=== PATIENT | male | born 1950 | race Caucasian/White ===

== ENCOUNTER → 2018-02-19 | Outpatient (CLI) | payer MEDICARE ==
[~2018-02-19] MED LIST: CALC1TAB2 PO; CARV25TA PO; CYAN500 PO; DOCU-272 PO; DOXA8TAB81 PO; DUTA1CPM PO; ESOM20CA31 PO; FENO145T PO; FURO10VI5 IJ; GLYB5TAB8 PO; INSLAN SQ; KRIL500C PO; METF-444 PO; MULT-959 PO; PYRI100T2 PO; ROSU10TA PO; THIA100T75 PO; UBID1CAP55 PO
== END | disposition home or self-care (01) ==
LOC: RAH 06:46
PROVIDERS: ATTEND Family Medicine
DX: M51.36 Other intervertebral disc degeneration, lumbar region (principal)
CPT/HCPCS: 72148

== ENCOUNTER 2019-09-04 09:38 | Emergency (ER) | payer MEDICARE ==
[~2019-09-04 09:38] MED LIST changes: -CYAN500 PO; +CYAN500T63 PO; +PYRI100T10 PO; -PYRI100T2 PO; -ROSU10TA PO; +ROSU10TA22 PO
[2019-09-04] MEDS ORDERED: SODIUM CHLORIDE 0.9% 500ML 500 ML IV ONE (09:39)
[2019-09-04] MEDS ORDERED: MECLIZINE HCL 25 MG TABLET ONE (10:10)
[2019-09-04] MEDS ORDERED: ONDANSETRON HCL 4 MG/2 ML VIAL ONE (10:10)
[2019-09-04 10:13] LABS: BASOPHILS % (AUTO) 0.4 % (0.0-5.0); EOSINOPHILS % (AUTO) 1.9 % (0.0-8.0); LYMPHOCYTES % (AUTO) 14.6 % (21.0-51.0); MEAN CORPUSCULAR HEMOGLOBIN 30.5 pg (27.0-33.0); MEAN CORPUSCULAR HGB CONC 33.2 g/dL (32.0-36.0); MEAN CORPUSCULAR VOLUME 91.9 fL (79-99); MONOCYTES % (AUTO) 4.9 % (3.0-13.0); NEUTROPHILS % (AUTO) 77.5 % (40.0-77.0); PLATELET COUNT (AUTO) 282 K/uL (130-400); RED CELL DISTRIBUTION WIDTH 12.4 % (11.0-15.5); WHITE BLOOD COUNT (AUTO) 9.1 K/uL (4.8-10.8)
[2019-09-04 10:17] LABS: CREATININE 1.8 mg/dL (0.5-1.5); POTASSIUM 4.2 mmol/L (3.5-5.1)
[2019-09-04 10:21] LABS: INR 0.92 (0.85-1.15); PARTIAL THROMBOPLASTIN TIME 28.7 SEC (26.3-35.5)
[2019-09-04 10:27] LABS: ALBUMIN 3.8 g/dL (3.5-5.0); BILIRUBIN,TOTAL 0.2 mg/dL (0.2-1.0); TOTAL PROTEIN, SERUM 7.8 g/dL (6.0-8.3)
[2019-09-04 10:52] LABS: APPEARANCE,URINE Clear (CLEAR); BILIRUBIN,URINE Negative (NEGATIVE); COLOR,URINE Yellow (YELLOW); GLUCOSE, URINE (UA) Negative (NEGATIVE); KETONES,URINE Negative (NEGATIVE); LEUKOCYTE ESTERASE ,URINE Negative (NEGATIVE); NITRATE,URINE Negative (NEGATIVE); OCCULT BLOOD,URINE Negative (NEGATIVE); PROTEIN,URINE Negative (NEGATIVE); UROBILINOGEN,URINE 0.2 mg/dL (0.2-1.0)
[2019-09-04] MEDS ORDERED: LORAZEPAM 2 MG/ML 1 ML VIAL ONE (11:57)
== END 2019-09-04 14:26 | disposition home or self-care (01) ==
LOC: EDH 09:38
DX: R42 Dizziness and giddiness (principal); R11.0 Nausea; I10 Essential (primary) hypertension; E11.9 Type 2 diabetes mellitus without complications
CPT/HCPCS: 36415; 70450; 80053; 81003; 84484; 85025; 85610; 85730; 93005; 96374; 96375; 99285; J2060; J2405; J7040

== ENCOUNTER → 2020-01-24 | Outpatient (CLI) | payer MEDICARE | END | disposition home or self-care (01) | LOC: SHCH 08:20 | PROVIDERS: ATTEND Internal Medicine Cardiovascular Disease | DX: I10 Essential (primary) hypertension (principal) | CPT/HCPCS: 93306; 93356 ==

== ENCOUNTER → 2020-02-06 | Outpatient (CLI) | payer MEDICARE | END | disposition home or self-care (01) | LOC: SHCH 08:15 | PROVIDERS: ATTEND Internal Medicine Cardiovascular Disease | DX: I10 Essential (primary) hypertension (principal); R60.9 Edema, unspecified | CPT/HCPCS: 93975 ==

== ENCOUNTER → 2020-02-07 | Outpatient (CLI) | payer MEDICARE ==
[~2020-02-07] MED LIST changes: +REGADENOSON 0.4 MG/5 ML PF SYG IVP SCH
== END | disposition home or self-care (01) ==
LOC: SHCH 08:09
PROVIDERS: ATTEND Internal Medicine Cardiovascular Disease
DX: I25.10 Atherosclerotic heart disease of native coronary artery without angina pectoris (principal); R06.00 Dyspnea, unspecified; R51.9 Headache, unspecified
CPT/HCPCS: 78452; 93017; 96374; A9500 ×2; J2785

== ENCOUNTER 2020-03-28 18:27 | Emergency (ER) | payer MEDICARE ==
[~2020-03-28 18:27] MED LIST changes: -CYAN500T63 PO; +CYAN500T65 PO; -REGADENOSON 0.4 MG/5 ML PF SYG IVP SCH
== END 2020-03-28 19:21 | disposition home or self-care (01) ==
LOC: EDH 18:27
DX: S20.219A Contusion of unspecified front wall of thorax, initial encounter (principal); I10 Essential (primary) hypertension; E11.9 Type 2 diabetes mellitus without complications; Z98.890 Other specified postprocedural states; V49.59XA Passenger injured in collision with other motor vehicles in traffic accident, initial encounter; Y93.89 Activity, other specified; Y92.89 Other specified places as the place of occurrence of the external cause; Y99.8 Other external cause status
CPT/HCPCS: 71045; 93005

== ENCOUNTER 2020-11-12 15:23 | Observation (INO) | payer MEDICARE ==
[~2020-11-12] VITALS: Ht 172.7 cm; Wt 113.6 kg
[~2020-11-12 15:23] MED LIST changes: -CYAN500T65 PO; +CYAN500T9 PO; -DOCU-272 PO; +DOCU-280 PO
[2020-11-12 15:25] VITALS: BP_SYST 64
[2020-11-12] MEDS ORDERED: ACETAMINOPHEN 325 MG TAB PO ONE (18:00)
[2020-11-12] MEDS ORDERED: TAMSULOSIN HCL 0.4 MG CAP.ER.24H PO SCH (18:00)
[2020-11-12] MEDS ORDERED: MORPHINE 4 MG SYG IVP ONE (18:00)
[2020-11-12] MEDS ORDERED: 0.9%NACL 1000ML 1,000 ML IV ONE (18:00)
[2020-11-12] MEDS ORDERED: ONDANSETRON 4MG INJ IVP ONE (18:00)
[2020-11-12 20:51] LABS: BASOPHILS % (AUTO) 0.2 % (0.0-5.0); HEMATOCRIT 36.5 % (42-54); MEAN CORPUSCULAR HEMOGLOBIN 31.2 pg (27.0-33.0); MEAN CORPUSCULAR HGB CONC 33.4 g/dL (32.0-36.0); MEAN CORPUSCULAR VOLUME 93.4 fL (79-99); MONOCYTES % (AUTO) 1.9 % (3.0-13.0); NEUTROPHILS % (AUTO) 89.4 % (40.0-77.0); PLATELET COUNT (AUTO) 284 K/uL (130-400); RED BLOOD CELL COUNT(AUTO) 3.91 MIL/uL (4.50-6.20); RED CELL DISTRIBUTION WIDTH 12.4 % (11.0-15.5)
[2020-11-12 21:05] LABS: CREATININE 1.8 mg/dL (0.5-1.5); POTASSIUM 5.1 mmol/L (3.5-5.1)
[2020-11-12 21:09] LABS: ALBUMIN 3.7 g/dL (3.5-5.0); BILIRUBIN,TOTAL 0.3 mg/dL (0.2-1.0); TOTAL PROTEIN, SERUM 8.1 g/dL (6.0-8.3)
[2020-11-12] MEDS ORDERED: KETOROLAC 30MG VIAL (30MG/ML) IV ONE (22:30)
[2020-11-12] MEDS ORDERED: CEFTRIAXONE 1G VIAL IV SCH (23:00)
[2020-11-12] MEDS ORDERED: MORPHINE 4 MG SYG IV PRN (23:00)
[2020-11-12] MEDS ORDERED: 0.9%NACL 1000ML 1,000 ML IV SCH (23:00)
[2020-11-12] MEDS ORDERED: ONDANSETRON 4MG INJ IV PRN (23:00)
[2020-11-12] MEDS ORDERED: NITROGLYCERIN 1GM OINT 1 INCH/1GM TD SCH (23:00)
[2020-11-12] MEDS ORDERED: HYDRALAZINE 20MG/ML VIAL IV PRN (23:00)
[2020-11-12] MEDS ORDERED: MORPHINE 2 MG SYG IV PRN (23:00)
[2020-11-12 23:04] LABS: APPEARANCE,URINE Clear (CLEAR); BILIRUBIN,URINE Negative (NEGATIVE); COLOR,URINE Yellow (YELLOW); GLUCOSE, URINE (UA) >=1000 mg/dL (NEGATIVE); KETONES,URINE Trace mg/dL (NEGATIVE); LEUKOCYTE ESTERASE ,URINE Negative (NEGATIVE); NITRATE,URINE Negative (NEGATIVE); OCCULT BLOOD,URINE Large (NEGATIVE); PH,URINE 5.5 (5.0-8.0); PROTEIN,URINE POS 1+ mg/dL (NEGATIVE); UROBILINOGEN,URINE 0.2 mg/dL (0.2-1.0)
[2020-11-12 23:27] LABS: RBC,URINE 26-50 /HPF (0-1); WBC,URINE 0-1 /HPF (0-1)
[2020-11-12 23:28] LABS: BACTERIA,URINE Few /HPF (None Seen); SQUAMOUS EPITHELIAL CELL,UR Few /HPF (0-2)
[2020-11-12 23:49] VITALS: BP 149/53
[2020-11-12 23:55] LABS: PROTHROMBIN TIME 10.9 SEC (9.6-11.6)
[2020-11-12 23:57] LABS: PARTIAL THROMBOPLASTIN TIME 25.9 SEC (26.3-35.5)
[2020-11-13] VITALS (7 sets, daily range): BP systolic 103–158; BP diastolic 52–87
[2020-11-13] MEDS ORDERED: DOXAZOSIN MESYLATE 2 MG TABLET PO SCH
[2020-11-13 00:05] LABS: TROPONIN I 0.28 ng/mL (0.00-0.06)
[2020-11-13] MEDS ORDERED: TAMSULOSIN HCL 0.4 MG CAP.ER.24H ONE (00:19)
[2020-11-13] MEDS ORDERED: SPIR25TA PO (01:31)
[2020-11-13] MEDS ORDERED: CHLO25TA3 PO (01:31)
[2020-11-13] MEDS ORDERED: PANT40SU PO (01:31)
[2020-11-13] MEDS ORDERED: AMLO-257 PO (01:31)
[2020-11-13] MEDS ORDERED: DUTA0.5C37 PO (01:37)
[2020-11-13] MEDS ORDERED: EVOL140S2 SQ (01:37)
[2020-11-13] MEDS ORDERED: BIMA2.5D4 OP (01:37)
[2020-11-13] MEDS ORDERED: MAGN250T10 PO (01:37)
[2020-11-13] MEDS ORDERED: ASPI-1197 PO (01:37)
[2020-11-13] MEDS ORDERED: IRON18TA PO (01:37)
[2020-11-13] MEDS ORDERED: TURM500C9 PO (01:37)
[2020-11-13] MEDS ORDERED: PREG75 PO (01:37)
[2020-11-13] MEDS ORDERED: MECL-160 PO (01:37)
[2020-11-13 05:48] LABS: BASOPHILS % (AUTO) 0.3 % (0.0-5.0); EOSINOPHILS % (AUTO) 0.3 % (0.0-8.0); HEMATOCRIT 33.1 % (42-54); LYMPHOCYTES % (AUTO) 18.9 % (21.0-51.0); MEAN CORPUSCULAR HEMOGLOBIN 31.2 pg (27.0-33.0); MEAN CORPUSCULAR HGB CONC 33.5 g/dL (32.0-36.0); MONOCYTES % (AUTO) 6.8 % (3.0-13.0); NEUTROPHILS % (AUTO) 73.3 % (40.0-77.0); PLATELET COUNT (AUTO) 279 K/uL (130-400); RED BLOOD CELL COUNT(AUTO) 3.56 MIL/uL (4.50-6.20); RED CELL DISTRIBUTION WIDTH 12.5 % (11.0-15.5); WHITE BLOOD COUNT (AUTO) 9.8 K/uL (4.8-10.8)
[2020-11-13 06:08] LABS: CREATININE 1.6 mg/dL (0.5-1.5); POTASSIUM 4.3 mmol/L (3.5-5.1); THYROID STIMULATING HORMONE 1.28 uIU/mL (0.36-3.74); TROPONIN I 0.24 ng/mL (0.00-0.06)
[2020-11-13] MEDS ORDERED: CARVEDILOL 25 MG TABLET PO SCH (09:00)
[2020-11-13] MEDS ORDERED: ASPIRIN 325MG EC TAB PO SCH (09:00)
[2020-11-13] MEDS ORDERED: AMLODIPINE 5 MG TAB PO SCH (09:00)
[2020-11-13] MEDS ORDERED: FAMOTIDINE 20MG VIAL IV SCH (09:00)
[2020-11-13] MEDS ORDERED: LOSARTAN 100 MG TABLET PO SCH (09:00)
[2020-11-13] MEDS ORDERED: SPIRONOLACTONE 25 MG TAB PO SCH (09:00)
[2020-11-13] MEDS ORDERED: LOSARTAN 50 MG TABLET ONE (10:05)
[2020-11-13 12:33] LABS: TROPONIN I 0.24 ng/mL (0.00-0.06)
[2020-11-13] MEDS ORDERED: CEFTRIAXONE 1G VIAL IVP SCH (16:00)
[2020-11-13] MEDS ORDERED: PIP/TAZ ZOSYN 3.375G 3.375 GM VIAL IVPB SCH (16:00)
[2020-11-13] MEDS ORDERED: 0.9%NACL 50ML IV SCH (16:00)
[2020-11-13] MEDS ORDERED: HYDR-4060 PO (16:30)
[2020-11-19] MEDS ORDERED: DUTA0.5C37 PO (15:31)
[2020-11-19] MEDS ORDERED: TAMS-1 PO (15:31)
[2020-11-19] MEDS ORDERED: LOSA100T58 PO (15:31)
[2020-11-19] MEDS ORDERED: INSLAN SQ (15:31)
== END 2020-11-13 19:05 | disposition home or self-care (01) ==
LOC: EDH 15:23 → EDHIP 22:44
PROVIDERS: ADMIT Internal Medicine; ATTEND Internal Medicine
DX: N20.0 Calculus of kidney (principal); N17.9 Acute kidney failure, unspecified; N13.30 Unspecified hydronephrosis; I21.4 Non-ST elevation (NSTEMI) myocardial infarction; I25.10 Atherosclerotic heart disease of native coronary artery without angina pectoris; I24.9 Acute ischemic heart disease, unspecified; I12.9 Hypertensive chronic kidney disease with stage 1 through stage 4 chronic kidney disease, or unspecified chronic kidney disease; N18.30 Chronic kidney disease, stage 3 unspecified; D72.829 Elevated white blood cell count, unspecified; K21.9 Gastro-esophageal reflux disease without esophagitis; N40.0 Benign prostatic hyperplasia without lower urinary tract symptoms; R77.8 Other specified abnormalities of plasma proteins; R60.0 Localized edema; R11.2 Nausea with vomiting, unspecified; Z87.891 Personal history of nicotine dependence; Z95.1 Presence of aortocoronary bypass graft; Z98.41 Cataract extraction status, right eye; Z98.42 Cataract extraction status, left eye; Z79.899 Other long term (current) drug therapy; Z98.890 Other specified postprocedural states; Z79.4 Long term (current) use of insulin; Z79.82 Long term (current) use of aspirin
CPT/HCPCS: 36415 ×2; 74176; 80048; 80053; 80061; 81001; 82550 ×3; 82948 ×2; 83605 ×2; 83690; 83874 ×3; 84443; 84484 ×4; 84550; 85025 ×2; 85610; 85730; 87040 ×2; 87088; 93005; 96361; 96374; 96375; 99291; G0378 ×20; J0696; J3490; J7030

== ENCOUNTER 2020-11-20 09:25 | Day surgery (SDC) | payer MEDICARE ==
[2020-11-19 12:14] LABS: CREATININE 1.7 mg/dL (0.5-1.5); POTASSIUM 4.9 mmol/L (3.5-5.1)
[2020-11-19 15:01] VITALS: BP 159/78
[2020-11-20] VITALS (16 sets, daily range): BP systolic 126–147; BP diastolic 53–74
[~2020-11-20] VITALS: Ht 172.7 cm; Wt 113.5 kg
[~2020-11-20 09:25] MED LIST changes: +AMLO-257 PO; +ASPI-1197 PO; +BIMA2.5D4 OP; -CALC1TAB2 PO; +CHLO25TA3 PO; -DOCU-280 PO; +DUTA0.5C37 PO; -DUTA1CPM PO; -ESOM20CA31 PO; +EVOL140S2 SQ; -FENO145T PO; -FURO10VI5 IJ; +IRON18TA PO; -KRIL500C PO; +LOSA100T58 PO; +MAGN250T10 PO; -MULT-959 PO; +PANT40SU PO; -ROSU10TA22 PO; +SPIR25TA PO; +TAMS-1 PO; +TURM500C9 PO
[2020-11-20] MEDS ORDERED: 0.9%NACL 1000ML 1,000 ML IV ONE (09:42)
[2020-11-20] MEDS: CEFTRIAXONE 1G VIAL IVP SCH ×2 (09:49→11:10)
[2020-11-20] MEDS ORDERED: ONDANSETRON 4MG INJ ONE (10:23)
[2020-11-20] MEDS ORDERED: DEXAMETHASONE SOD PHOSPHATE 10MG/ML 1ML VIAL ONE (10:23)
[2020-11-20] MEDS ORDERED: NEOSTIGMINE 5MG/5ML SYR IV ONE (10:23)
[2020-11-20] MEDS ORDERED: LIDOCAINE PF 100MG/5ML (2%) SYRINGE 5ML ONE (10:23)
[2020-11-20] MEDS ORDERED: GLYCOPYRROLATE 1 MG/5 ML SYRINGE ONE (10:23)
[2020-11-20] MEDS ORDERED: ROCURONIUM 10MG/1ML SYR 10 MG/ML ML ONE (10:23)
[2020-11-20] MEDS ORDERED: FENTANYL CITRATE PF 50 MCG/1 ML 2ML VIAL ONE (10:23)
[2020-11-20] MEDS ORDERED: IOHEXOL-350 50ML VIAL IV ONE (11:49)
[2020-11-20] MEDS ORDERED: MIDAZOLAM HCL 1 MG/ML 2ML VIAL ONE (11:54)
[2020-11-20] MEDS ORDERED: EPHEDRINE SULFATE 50 MG/ML AMPULE ONE (11:55)
[2020-11-20] MEDS ORDERED: PROPOFOL 10 MG/ML 20ML VIAL IV ONE (11:56)
[2020-11-20] MEDS ORDERED: OPIUM/BELLADONNA ALKALOIDS 1 EACH SUPP.RECT RC ONE (13:06)
[2020-11-20] MEDS ORDERED: PHENAZOPYRIDINE HCL 200 MG TABLET ONE (14:32)
== END 2020-11-20 15:00 | disposition home or self-care (01) ==
LOC: DAH 09:25
PROVIDERS: ATTEND Urology
DX: N13.2 Hydronephrosis with renal and ureteral calculous obstruction (principal); N21.0 Calculus in bladder; N40.0 Benign prostatic hyperplasia without lower urinary tract symptoms; I25.10 Atherosclerotic heart disease of native coronary artery without angina pectoris; I10 Essential (primary) hypertension; E11.9 Type 2 diabetes mellitus without complications; Z79.899 Other long term (current) drug therapy; Z20.822 Contact with and (suspected) exposure to COVID-19
CPT/HCPCS: 36415; 52317; 52332; 74420; 80048; 82948 ×2; 87635; A4215; A4221; A4222; A4223; A4344; A4358; A4510; A4600; A4657; A4663; A6260; C1758 ×2; C2617; C9803; J0696; J1100; J2001; J2250; J2405; J2704; J2710; J3010; J3490 ×2; J7030; J7120; Q9967

== ENCOUNTER → 2020-12-16 | Outpatient (CLI) | payer MEDICARE ==
[~2020-12-16] MED LIST changes: -ASPI-1197 PO; -UBID1CAP55 PO
== END | disposition home or self-care (01) ==
LOC: RAH 15:37
PROVIDERS: ATTEND Urology
DX: N20.0 Calculus of kidney (principal)
CPT/HCPCS: 74018

== ENCOUNTER 2021-03-09 11:50 | Emergency (ER) | payer MEDICARE ==
[~2021-03-09] VITALS: Ht 172.7 cm; Wt 127.0 kg
[2021-03-09 11:51] VITALS: BP 149/60
[2021-03-09 13:29] LABS: MEAN CORPUSCULAR HEMOGLOBIN 31.4 pg (27.0-33.0); MEAN CORPUSCULAR HGB CONC 32.9 g/dL (32.0-36.0); MEAN CORPUSCULAR VOLUME 95.2 fL (79-99); RED BLOOD CELL COUNT(AUTO) 3.57 MIL/uL (4.50-6.20); RED CELL DISTRIBUTION WIDTH 12.3 % (11.0-15.5); WHITE BLOOD COUNT (AUTO) 8.3 K/uL (4.8-10.8)
[2021-03-09 13:37] LABS: APPEARANCE,URINE Cloudy (CLEAR); BILIRUBIN,URINE Negative (NEGATIVE); COLOR,URINE Yellow (YELLOW); GLUCOSE, URINE (UA) TRACE mg/dL (NEGATIVE); KETONES,URINE Negative (NEGATIVE); LEUKOCYTE ESTERASE ,URINE Large (NEGATIVE); NITRATE,URINE Negative (NEGATIVE); OCCULT BLOOD,URINE Large (NEGATIVE); PROTEIN,URINE POS 1+ mg/dL (NEGATIVE); UROBILINOGEN,URINE 0.2 mg/dL (0.2-1.0)
[2021-03-09 13:46] LABS: BACTERIA,URINE Moderate /HPF (None Seen); RBC,URINE 26-50 /HPF (0-1); WBC,URINE 51-100 /HPF (0-1)
[2021-03-09 13:47] LABS: SQUAMOUS EPITHELIAL CELL,UR 0-2 /HPF (0-2)
[2021-03-09] MEDS ORDERED: CEFTRIAXONE 1G VIAL ONE (13:55)
[2021-03-09] MEDS ORDERED: LIDOCAINE HCL-MPF 1% 2ML VIAL ONE (13:56)
[2021-03-09] MEDS ORDERED: CEPH500B PO (13:56)
[2021-03-09] MEDS ORDERED: CEFTRIAXONE 1G VIAL IM ONE (14:00)
[2021-03-09] MEDS ORDERED: SILVER NITRATE APPLICATOR 1 SWAB TP SCH (14:30)
== END 2021-03-09 14:09 | disposition home or self-care (01) ==
LOC: EDH 11:50
DX: N39.0 Urinary tract infection, site not specified (principal); N50.1 Vascular disorders of male genital organs; E11.9 Type 2 diabetes mellitus without complications; E66.9 Obesity, unspecified; E78.00 Pure hypercholesterolemia, unspecified; I10 Essential (primary) hypertension; Z79.4 Long term (current) use of insulin; Z79.899 Other long term (current) drug therapy; Z87.442 Personal history of urinary calculi; Z68.41 Body mass index [BMI] 40.0-44.9, adult
CPT/HCPCS: 36415; 81001; 85027; 87077; 87088; 87186; 96372; 99283; J0696; J3490

== ENCOUNTER 2021-10-29 07:13 | Day surgery (SDC) | payer MEDICARE ==
[2021-10-27 15:53] LABS: BASOPHILS % (AUTO) 0.3 % (0.0-5.0); EOSINOPHILS % (AUTO) 1.3 % (0.0-8.0); HEMATOCRIT 34.8 % (42-54); LYMPHOCYTES % (AUTO) 14.5 % (21.0-51.0); MEAN CORPUSCULAR HEMOGLOBIN 31.3 pg (27.0-33.0); MEAN CORPUSCULAR HGB CONC 32.5 g/dL (32.0-36.0); MEAN CORPUSCULAR VOLUME 96.4 fL (79-99); MONOCYTES % (AUTO) 6.3 % (3.0-13.0); PLATELET COUNT (AUTO) 262 K/uL (130-400); RED BLOOD CELL COUNT(AUTO) 3.61 MIL/uL (4.50-6.20); RED CELL DISTRIBUTION WIDTH 12.9 % (11.0-15.5); WHITE BLOOD COUNT (AUTO) 8.7 K/uL (4.8-10.8)
[2021-10-27 15:57] LABS: CREATININE 1.7 mg/dL (0.5-1.5); POTASSIUM 5.2 mmol/L (3.5-5.1)
[2021-10-28 09:52] VITALS: BP 167/63
[2021-10-29] VITALS (16 sets, daily range): BP systolic 136–181; BP diastolic 66–87
[~2021-10-29] VITALS: Ht 172.7 cm; Wt 116.1 kg
[~2021-10-29 07:13] MED LIST changes: +AEC81 PO; -BIMA2.5D4 OP; +CHOL200052 PO; -MAGN250T10 PO; +MAGN400C PO; +MECL-160 PO; +MULT-1367 PO; +NITR0.4T50 SL; -TURM500C9 PO
[2021-10-29] MEDS: LEVOFLOXACIN 500 MG/D5W 100 ML 100 ML IV SCH ×2 (08:00→11:10)
[2021-10-29] MEDS ORDERED: 0.9%NACL 1000ML 1,000 ML IV ONE (08:34)
[2021-10-29] MEDS ORDERED: DEXAMETHASONE SOD PHOSPHATE 10MG/ML 1ML VIAL ONE (10:11)
[2021-10-29] MEDS ORDERED: LIDOCAINE PF 100MG/5ML (2%) SYRINGE 5ML ONE (10:11)
[2021-10-29] MEDS ORDERED: SUCCINYLCHOLINE 200MG/10ML SYR ONE (10:11)
[2021-10-29] MEDS ORDERED: GLYCOPYRROLATE 1 MG/5 ML SYRINGE ONE (10:12)
[2021-10-29] MEDS ORDERED: MIDAZOLAM HCL 1 MG/ML 2ML VIAL ONE (10:12)
[2021-10-29] MEDS ORDERED: PROPOFOL 10 MG/ML 20ML VIAL IV ONE (10:12)
[2021-10-29] MEDS ORDERED: FENTANYL CITRATE PF 50 MCG/1 ML 2ML VIAL ONE (10:12)
[2021-10-29] MEDS ORDERED: NEOSTIGMINE 5MG/5ML SYR IV ONE (10:12)
[2021-10-29] MEDS ORDERED: ROCURONIUM 10MG/1ML SYR 10 MG/ML ML ONE ×2 (10:12→11:47)
[2021-10-29 10:18] LABS: CREATININE 1.5 mg/dL (0.5-1.5); POTASSIUM 4.5 mmol/L (3.5-5.1)
[2021-10-29] MEDS ORDERED: OPIUM/BELLADONNA ALKALOIDS 1 EACH SUPP.RECT RC ONE (10:42)
[2021-10-29] MEDS ORDERED: ONDANSETRON 4MG INJ ONE (12:33)
[2021-10-29] MEDS ORDERED: MEPERIDINE-PF 25 MG/ML SYG ONE ×2 (12:34→12:45)
[2021-10-29] MEDS ORDERED: PHENAZOPYRIDINE HCL 200 MG TABLET ONE (13:05)
== END 2021-10-29 14:30 | disposition home or self-care (01) ==
LOC: DAH 07:13
PROVIDERS: ATTEND Urology
DX: N40.1 Benign prostatic hyperplasia with lower urinary tract symptoms (principal); R33.8 Other retention of urine; R35.1 Nocturia; E11.22 Type 2 diabetes mellitus with diabetic chronic kidney disease; I12.9 Hypertensive chronic kidney disease with stage 1 through stage 4 chronic kidney disease, or unspecified chronic kidney disease; N18.9 Chronic kidney disease, unspecified; Z98.890 Other specified postprocedural states; Z79.4 Long term (current) use of insulin; Z79.899 Other long term (current) drug therapy
CPT/HCPCS: 36415 ×2; 52648; 80048 ×2; 82948 ×2; 85025; 87635; 93005; A4215; A4221; A4222; A4223; A4340; A4354; A4358 ×2; A4600; A4663; A5113; A6260; A6402; C9803; J0330; J1100; J1956; J2001; J2175 ×2; J2250; J2405; J2704; J2710; J3010; J3490; J7030 ×2

== ENCOUNTER → 2023-03-10 | Outpatient (CLI) | payer MEDICARE ==
[~2023-03-10] MED LIST changes: -AEC81 PO; +IOHEXOL-350 50ML VIAL IV ONE; -LOSA100T58 PO; +LOSA100T59 PO; -MECL-160 PO; +MECL-302 PO
== END | disposition home or self-care (01) ==
LOC: RAH 11:32
PROVIDERS: ATTEND Family Medicine
DX: I51.7 Cardiomegaly (principal); R79.1 Abnormal coagulation profile; M47.815 Spondylosis without myelopathy or radiculopathy, thoracolumbar region
CPT/HCPCS: 71270; Q9967